=== PATIENT | male | born 1935 | race Caucasian/White ===

== ENCOUNTER 2016-12-01 07:33 | Emergency (ER) | payer OTHER ==
--- NOTE | 2016-12-01 09:12 | DIAGNOSTIC IMAGING REPORT ---
PROCEDURE: CT ABDOMEN/PELVIS W/O CONTRAST INDICATION: FLANK PAIN TECHNIQUE: Axial CT images were obtained through the abdomen and pelvis without IV contrast. Coronal and sagittal reformations were created. COMPARISON: None. FINDINGS: Respiratory motion at the lung bases. Mildly enlarged heart. Small fat containing hiatal hernia. Granulomatous changes throughout the spleen. 3 mm calcification in the left mid ureter. No significant hydronephrosis or hydroureter. Mild left judith ureteric inflammation. No other intrarenal calcifications. The unenhanced appearance of the liver, gallbladder, adrenal glands, kidneys, pancreas and spleen is normal. The abdominal aorta is normal in its course and caliber with moderate atherosclerosis. There are no suspicious calcifications, retroperitoneal adenopathy or masses. The stomach, upper bowel loops, and mesentery appears normal. Intact anterior abdominal wall. No free fluid, or inflammation. Surgical changes of prostatectomy. Left hip arthroplasty beam hardening artifact partially obscures the pelvis. The unenhanced appearance of the urinary bladder, pelvic vessels, and pelvic bowel loops is normal. Normal appendix. No suspicious calcifications, free fluid, or mass. Degenerative disc, endplate, and facet changes in the spine. IMPRESSION: 1. 3 mm mid left ureteral calculus without causing significant obstructive uropathy. 2. Splenic granulomas. 3. Status post prostatectomy and left hip arthroplasty. 4. Findings called to the emergency room. All CT scans at this facility use dose modulation, iterative reconstruction, and/or weight-based dosing when appropriate to reduce radiation dose to as low as reasonably achievable.
--- NOTE | 2016-12-01 09:39 | ED CLINICAL REPORT ---
Clinical Report - Physicians/Mid Levels [facility] [address] [place] [address] 12/01/2016 7:34 Patient: JIMI MEDINA Time Seen: 07:47. Arrived- By ambulance. Historian- patient, EMS personnel and family. HISTORY OF PRESENT ILLNESS Chief Complaint: ABDOMINAL PAIN and FLANK PAIN. This started about 5 days ago and is still present. It was gradual in onset and has been waxing/waning. It is described as "pain" and sharp and it is described as located in the left abdomen and the left flank and radiating to the left upper quadrant of the abdomen and left lower quadrant of the abdomen. At its maximum, severity described as severe. When seen in the E.D., severity described as mild. Modifying factors- worsened by movement. Relieved by rest. ("pain pill" helped - took just prior to arrival). The patient has had nausea. No vomiting or diarrhea. (Patient has had pain in his left flank with off and on diarrhea with a low grade fever. Went to the ER in [place] and was seen yesterday and diagnosed with kidney stones and given pain medication. Woke up this am in 8/10 pain and weak he states he rolled out of bed and couldn't get up. His son found him on the ground and called 911). Similar symptoms previously: Recent medical care: The patient was seen recently at another facility in the emergency department. Diagnosis: kidney stone. REVIEW OF SYSTEMS No constipation, black stools, hematemesis, pain with urination or bloody stools. No headache, sore throat, chest pain, difficulty breathing or cough. No chills. He has had difficulty with urination, and back pain. The patient has had urinary frequency. He has had a subjective fever (possible low grade). All systems otherwise negative, except as recorded above. PAST HISTORY PROBLEMS: Thrombocytopenia. Irregular heartbeat . Arthritis. Nephrolithiasis. Cancer. High blood pressure BPH Erectile dysfunction Inguinal hernia Prostate cancer. Malignant neoplasm of the skin Fracture of C7 Diverticulosis SURGERIES: Back Surgery. Knee Surgery. Prostatectomy. Shoulder Surgery - Rotator cuff repair Hip replacement ostatectomy. Medications: Fluticasone Propionate Nasal. Quinapril HCl Oral. Metoprolol Succinate ER Oral. Toradol. Zofran Oral. OxyCODONE HCl Oral. Accupril Oral. Allergies: No Known Drug Allergy. SOCIAL HISTORY Former smoker, end date 1971. No alcohol use or drug use. Is a local resident. ADDITIONAL NOTES The nursing notes have been reviewed. PHYSICAL EXAM Vital Signs: 12/01/2016 07:36 BP: 136/82. HR: 95. RR: 18. O2 saturation: 94%. Temp: 98.9 F. Appearance: Alert. Oriented X3. Patient in mild distress. Eyes: Eyes normal inspection. No scleral icterus or pale conjunctivae. ENT: Pharynx normal. No pharyngeal erythema or tonsillar exudate. The mucous membranes are not dry. Neck: Normal inspection. Neck supple. CVS: Heart sounds normal. Pulses normal. Respiratory: No respiratory distress. Breath sounds normal. Abdomen: Soft and nontender. No mass. Back: Normal inspection. Skin: Skin warm and dry. Normal skin color. Normal skin turgor. Extremities: Extremities exhibit normal ROM. No lower extremity edema. Neuro: Oriented X 3. No motor deficit. LABS, X-RAYS, AND EKG EKG: EKG time: (16:51 on 30NOV2016 [place] [facility] Normal sinus rhythm. Normal P waves. Normal JEANCARLOS. Normal QRS complex. Normal axis. Normal ST and T waves. The study has been interpreted contemporaneously by me. The EKG appears to be a good tracing. Laboratory Tests: UA-Culture if indicated: (FRANCHESKA: 12/01/2016 08:10) ( MsgRcvd 12/01/2016 08:31) Final results Test Result Flag Units (Reference) URINE COLOR YELLOW URINE APPEARANCE CLOUDY URINE GLUCOSE NEGATIVE (NEGATIVE) URINE BILIRUBIN NEGATIVE (NEGATIVE) URINE KETONE 1+ (NEGATIVE) URINE SPECIFIC GRAVITY 1.020 (1.010-1.030) URINE PH 5.5 (5.0-8.0) URINE PROTEIN 1+ (NEGATIVE) URINE UROBILINOGEN 0.2 EU/dL (0.2-1.0) URINE NITRITE POSITIVE (NEGATIVE) URINE BLOOD 3+ (NEGATIVE) URINE LEUK ESTERASE POSITIVE (NEGATIVE) URINE RBC 3-5 rbc/hpf (0-1) URINE WBC 15-25 wbc/hpf (0-1) URINE EPITHELIAL CELLS 0-1 EPI/hpf (0-5) URINE BACTERIA MANY (4+) (NONE SEEN) URINE COMMENT CULTURE INDICATED URINE CULTURES ARE SET-UP BASED ON THE FOLLOWING CRITERIA:POSITIVE NITRITEPOSITIVE LEUKOCYTE ESTERASEGREATER THAN 10 WHITE BLOOD CELLSMODERATE (2+) OR GREATER BACTERIA CBC w Diff: (FRANCHESKA: 12/01/2016 07:40) ( [facility] 12/01/2016 09:22) Final results Test Result Flag Units (Reference) WHITE BLOOD COUNT 8.2 K/uL (4.5-11.5) RED BLOOD COUNT 4.03 L M/uL (4.50-5.90) HEMOGLOBIN 12.1 L gm/dL (13.5-17.5) HEMATOCRIT 35.6 L % (41.0-53.0) MEAN CELL VOLUME 88 fL (80-100) MEAN CORPUSCULAR HGB 30 pg (26-34) MEAN CORPUSCULAR HGB CONC 34 g/dL (31-37) RED CELL DISTRIBUTION WIDTH 15.0 H % (11.6-14.8) PLATELET COUNT 107 L K/uL (150-400) POLY % 84 H % (50-75) BAND % 6 % (0-8) LYMPH 7 L % (25-40) MONO 3 % (3-14) EOSINOPHIL % 0 % (0-4) BASOPHIL % 0 % (0-2) METAMYELOCYTE % 0 % (0-1) MYELOCYTE 0 % (0-1) OTHER CELL TYPE 0 ANISOCYTOSIS 1+ PT with INR: (FRANCHESKA: 12/01/2016 07:40) ( [facility] 12/01/2016 08:19) Final results Test Result Flag Units (Reference) INR 1.0 (0.8-1.2) Low Intensity Therapy: INR 1.5-2.0 PT range 18.5-23.1Mod.Intensity Therapy: INR 2.0-3.0 PT range 23.1-31.5High Intensity Therapy: INR 2.5-3.5 PT range 27.4-35.5High Intensity Therapy 2: INR 3.0-4.0 PT range 31.5-39.3 BNP: (FRANCHESKA: 12/01/2016 07:40) ( MsgRcvd 12/01/2016 08:23) Final results Test Result Flag Units (Reference) B-TYPE NATRIURETIC PEPTIDE 354 H pg/ml (5-100) CHEM 13 PANEL: (FRANCHESKA: 12/01/2016 07:40) ( MsgRcvd 12/01/2016 08:36) Final results Test Result Flag Units (Reference) GLUCOSE 113 H mg/dL (70-110) BUN 33 H mg/dL (7-18) CREATININE 1.3 mg/dL (0.6-1.3) Estimated GFR 56.03 mL/min Estimated GFR- >60 mL/min Note: Persistent reduction over 3 months in eGFR<60 mL/min/1.73 m2 defines CKD. Patients with eGFR values>=60 mL/min/1.73 m2 may also have CKD if evidence ofpersistent proteinuria. Additional information may be foundat www.kidney.org. SODIUM 136 mmol/L (136-145) POTASSIUM 3.6 mmol/L (3.5-5.1) CHLORIDE 101 mmol/L (98-107) CARBON DIOXIDE 24 mmol/L (21-32) CALCIUM 8.5 mg/dL (8.5-10.1) TOTAL PROTEIN 6.7 g/dL (6.4-8.2) ALBUMIN 2.9 L g/dL (3.3-5.0) BILIRUBIN, TOTAL 0.9 mg/dL (0.0-1.0) ALKALINE PHOSPHATASE 100 U/L (46-116) AST (SGOT) 43 H U/L (15-37) ALT (SGPT) 50 U/L (12-78) CPK 755 H U/L (24-260) MAGNESIUM 1.7 L mg/dL (1.8-2.4) LIPASE 124 U/L (73-393) AMYLASE 45 U/L (25-115) CK-MB 11.0 H ng/mL (0.5-3.2) %CKMB 1.5 % (0.0-4.0) TROPONIN I <0.05 ng/mL (0.00-1.5) TROPONIN REFERENCE RANGE:<0.1 NEGATIVE0.1-1.5 INDETERMINANT>1.5 POSITIVE . Microbiology: Urine culture ordered. Pulse Oximetry: 12/01/2016 07:36 O2 saturation: 94%. (FIO2 - room air). Interpretation: hypoxemia. PROGRESS AND PROCEDURES Course of Care: Ceftriaxone 2g IV. Pt has urologist - Dr Lorenzana in [place]. I have offered to transfer him to [facility], but pt would really prefer to see his personal urologist. [place] [facility] [place] request that I speak directly to Dr Lorenzana although Dr. Lorenzana is not telecommunications repairer. Dr Lorenzana contacted in the office and will be able to see pt in the office today. Requests he go directly to see him if possible. Pt appears to have a UTI as well. I have given abx parenterally in the ED. Although he is currently afebrile, he may require hospitalization. Pt prefers to see his urologist today rather than be transferred to the hospital. He had good social support - don driving. Now pain free in the ED. 12/01/2016 10:03 BP: 126/68. HR: 72. RR: 18. O2 saturation: 97%. Temp: 99.3 F. Discussed case with health care provider (Katie). Patient/family counseled. Old ED records reviewed. [place] [facility] Disposition: Discharged. Condition: stable and improved. CLINICAL IMPRESSION Ureterolithiasis (single stone) in the right ureter with renal colic, hydronephrosis and urinary tract infection. Acute urinary tract infection with cystitis. INSTRUCTIONS Drink plenty of fluids. (Please go directly to Dr Lorenzana's office). Warnings: Further evaluation is necessary. SEDATIVE MEDICATION: You were given sedative medication during your visit. Do not drive or operate dangerous machinery. CONTROLLED SUBSTANCE WARNINGS. GENERAL WARNINGS: Return or contact your physician immediately if your condition worsens or changes unexpectedly, if not improving as expected, or if other problems arise. Your Current Medications: CONTINUE TAKING THE FOLLOWING MEDICATIONS: Accupril Oral. Fluticasone Propionate Nasal. Metoprolol Succinate ER Oral. OxyCODONE HCl Oral. Quinapril HCl Oral. Toradol*. Zofran Oral. Prescription Medications: Macrobid 100 mg: Take 1 capsule orally every 12 hours for 7 days. No refills. Substitution is permissible. Follow-up: Follow up with a urologist Dr Lorenzana today. (Electronically signed by Darin Jones DO 12/01/2016 11:30)
--- NOTE | 2016-12-01 09:39 | ED ORDER SUMMARY ---
..... Patient: JIMI MEDINA OrderSheet [facility] VisitID: [id number] [place] [address] 81y, M Registration Date/Time: 12/01/2016 ORDER SHEET Weight: 81.1 kg (stated) Allergies: No Known Drug Allergy GENERAL ORDERS: CT Abd/Pel wo Cont Urgent (07:57 12/01/2016 PHutchinson DO) (Ack 7:59 OHsruthinandez) (8:23 LWhalen R.N.) UA-Culture if indicated Urgent (07:57 12/01/2016 PHutchinson DO) (Ack 7:59 Donandez) (8:19 JSimbeck R.N.) Amylase Urgent (07:57 12/01/2016 PHutchinson DO) (Ack 7:59 Donandez) (8:23 LWhalen R.N.) Lipase Urgent (07:57 12/01/2016 PHutchinson DO) (Ack 7:59 Donandez) (8:23 LWhalen R.N.) PT with INR Urgent (07:57 12/01/2016 PHutchinson DO) (Ack 7:59 OHsruthinandez) (8:23 LWhalen R.N.) Cardiac Panel Stat (07:57 12/01/2016 PHutchinson DO) (Ack 7:59 OHernandez) (8:23 LWhalen R.N.) BNP Urgent (07:57 12/01/2016 PHutchinson DO) (Ack 7:59 OHsruthinandez) (8:23 LWhalen R.N.) NPO (07:57 12/01/2016 PHutchinson DO) (Ack 7:59 OHernandez) (8:23 LWhalen R.N.) Call (Place call to): ([facility] urology) (08:05 12/01/2016 PHutchinson DO) (8:23 LWhalen R.N.) MEDICATION ORDERS: IV FLUIDS: IV NS : initial bolus 500 mL (1000 mL/hr), then 250 mL/hr for X2 (NOW) (07:56 12/01/2016 PHutchinson DO) (8:23 LWhalen R.N.) Zofran IV 4 mg (NOW) (07:57 12/01/2016 [facility]) (8:23 LWquinn R.N.) Morphine IV 3 mg (HIGH ALERT MEDICATION, NOW) (08:29 12/01/2016 [facility]) (8:58 LWquinn R.N.) Ceftriaxone IV 2 gm/50mL (NOW) (08:45 12/01/2016 [facility]) (9:07 LWquinn R.N.) ORDER SHEET NOTES: [Electronically signed by Savage Peña R.N. (10:06 12/01/2016)] [Electronically signed by Darin Jones DO (11:30 12/01/2016)] [Electronically locked/signed by Savage Peña R.N. (10:12/01/2016)]
--- NOTE | 2016-12-01 09:39 | ED CLINICAL REPORT ---
Clinical Report - Physicians/Mid Levels [facility] [address] [place] [address] 12/01/2016 7:34 Patient: JIMI MEDINA Time Seen: 07:47. Arrived- By ambulance. Historian- patient, EMS personnel and family. HISTORY OF PRESENT ILLNESS Chief Complaint: ABDOMINAL PAIN and FLANK PAIN. This started about 5 days ago and is still present. It was gradual in onset and has been waxing/waning. It is described as "pain" and sharp and it is described as located in the left abdomen and the left flank and radiating to the left upper quadrant of the abdomen and left lower quadrant of the abdomen. At its maximum, severity described as severe. When seen in the E.D., severity described as mild. Modifying factors- worsened by movement. Relieved by rest. ("pain pill" helped - took just prior to arrival). The patient has had nausea. No vomiting or diarrhea. (Patient has had pain in his left flank with off and on diarrhea with a low grade fever. Went to the ER in [place] and was seen yesterday and diagnosed with kidney stones and given pain medication. Woke up this am in 8/10 pain and weak he states he rolled out of bed and couldn't get up. His son found him on the ground and called 911). Similar symptoms previously: Recent medical care: The patient was seen recently at another facility in the emergency department. Diagnosis: kidney stone. REVIEW OF SYSTEMS No constipation, black stools, hematemesis, pain with urination or bloody stools. No headache, sore throat, chest pain, difficulty breathing or cough. No chills. He has had difficulty with urination, and back pain. The patient has had urinary frequency. He has had a subjective fever (possible low grade). All systems otherwise negative, except as recorded above. PAST HISTORY PROBLEMS: Thrombocytopenia. Irregular heartbeat . Arthritis. Nephrolithiasis. Cancer. High blood pressure BPH Erectile dysfunction Inguinal hernia Prostate cancer. Malignant neoplasm of the skin Fracture of C7 Diverticulosis SURGERIES: Back Surgery. Knee Surgery. Prostatectomy. Shoulder Surgery - Rotator cuff repair Hip replacement ostatectomy. Medications: Fluticasone Propionate Nasal. Quinapril HCl Oral. Metoprolol Succinate ER Oral. Toradol. Zofran Oral. OxyCODONE HCl Oral. Accupril Oral. Allergies: No Known Drug Allergy. SOCIAL HISTORY Former smoker, end date 1971. No alcohol use or drug use. Is a local resident. ADDITIONAL NOTES The nursing notes have been reviewed. PHYSICAL EXAM Vital Signs: 12/01/2016 07:36 BP: 136/82. HR: 95. RR: 18. O2 saturation: 94%. Temp: 98.9 F. Appearance: Alert. Oriented X3. Patient in mild distress. Eyes: Eyes normal inspection. No scleral icterus or pale conjunctivae. ENT: Pharynx normal. No pharyngeal erythema or tonsillar exudate. The mucous membranes are not dry. Neck: Normal inspection. Neck supple. CVS: Heart sounds normal. Pulses normal. Respiratory: No respiratory distress. Breath sounds normal. Abdomen: Soft and nontender. No mass. Back: Normal inspection. Skin: Skin warm and dry. Normal skin color. Normal skin turgor. Extremities: Extremities exhibit normal ROM. No lower extremity edema. Neuro: Oriented X 3. No motor deficit. LABS, X-RAYS, AND EKG EKG: EKG time: (16:51 on 30NOV2016 - done at [facility] [place] Normal sinus rhythm. Normal P waves. Normal JEANCARLOS. Normal QRS complex. Normal axis. Normal ST and T waves. The study has been interpreted contemporaneously by me. The EKG appears to be a good tracing. Laboratory Tests: UA-Culture if indicated: (FRANCHESKA: 12/01/2016 08:10) ( MsgRcvd 12/01/2016 08:31) Final results Test Result Flag Units (Reference) URINE COLOR YELLOW URINE APPEARANCE CLOUDY URINE GLUCOSE NEGATIVE (NEGATIVE) URINE BILIRUBIN NEGATIVE (NEGATIVE) URINE KETONE 1+ (NEGATIVE) URINE SPECIFIC GRAVITY 1.020 (1.010-1.030) URINE PH 5.5 (5.0-8.0) URINE PROTEIN 1+ (NEGATIVE) URINE UROBILINOGEN 0.2 EU/dL (0.2-1.0) URINE NITRITE POSITIVE (NEGATIVE) URINE BLOOD 3+ (NEGATIVE) URINE LEUK ESTERASE POSITIVE (NEGATIVE) URINE RBC 3-5 rbc/hpf (0-1) URINE WBC 15-25 wbc/hpf (0-1) URINE EPITHELIAL CELLS 0-1 EPI/hpf (0-5) URINE BACTERIA MANY (4+) (NONE SEEN) URINE COMMENT CULTURE INDICATED URINE CULTURES ARE SET-UP BASED ON THE FOLLOWING CRITERIA:POSITIVE NITRITEPOSITIVE LEUKOCYTE ESTERASEGREATER THAN 10 WHITE BLOOD CELLSMODERATE (2+) OR GREATER BACTERIA CBC w Diff: (FRANCHESKA: 12/01/2016 07:40) ( [facility] 12/01/2016 09:22) Final results Test Result Flag Units (Reference) WHITE BLOOD COUNT 8.2 K/uL (4.5-11.5) RED BLOOD COUNT 4.03 L M/uL (4.50-5.90) HEMOGLOBIN 12.1 L gm/dL (13.5-17.5) HEMATOCRIT 35.6 L % (41.0-53.0) MEAN CELL VOLUME 88 fL (80-100) MEAN CORPUSCULAR HGB 30 pg (26-34) MEAN CORPUSCULAR HGB CONC 34 g/dL (31-37) RED CELL DISTRIBUTION WIDTH 15.0 H % (11.6-14.8) PLATELET COUNT 107 L K/uL (150-400) POLY % 84 H % (50-75) BAND % 6 % (0-8) LYMPH 7 L % (25-40) MONO 3 % (3-14) EOSINOPHIL % 0 % (0-4) BASOPHIL % 0 % (0-2) METAMYELOCYTE % 0 % (0-1) MYELOCYTE 0 % (0-1) OTHER CELL TYPE 0 ANISOCYTOSIS 1+ PT with INR: (FRANCHESKA: 12/01/2016 07:40) ( [facility] 12/01/2016 08:19) Final results Test Result Flag Units (Reference) INR 1.0 (0.8-1.2) Low Intensity Therapy: INR 1.5-2.0 PT range 18.5-23.1Mod.Intensity Therapy: INR 2.0-3.0 PT range 23.1-31.5High Intensity Therapy: INR 2.5-3.5 PT range 27.4-35.5High Intensity Therapy 2: INR 3.0-4.0 PT range 31.5-39.3 BNP: (FRANCHESKA: 12/01/2016 07:40) ( MsgRcvd 12/01/2016 08:23) Final results Test Result Flag Units (Reference) B-TYPE NATRIURETIC PEPTIDE 354 H pg/ml (5-100) CHEM 13 PANEL: (FRANCHESKA: 12/01/2016 07:40) ( MsgRcvd 12/01/2016 08:36) Final results Test Result Flag Units (Reference) GLUCOSE 113 H mg/dL (70-110) BUN 33 H mg/dL (7-18) CREATININE 1.3 mg/dL (0.6-1.3) Estimated GFR 56.03 mL/min Estimated GFR- >60 mL/min Note: Persistent reduction over 3 months in eGFR<60 mL/min/1.73 m2 defines CKD. Patients with eGFR values>=60 mL/min/1.73 m2 may also have CKD if evidence ofpersistent proteinuria. Additional information may be foundat www.kidney.org. SODIUM 136 mmol/L (136-145) POTASSIUM 3.6 mmol/L (3.5-5.1) CHLORIDE 101 mmol/L (98-107) CARBON DIOXIDE 24 mmol/L (21-32) CALCIUM 8.5 mg/dL (8.5-10.1) TOTAL PROTEIN 6.7 g/dL (6.4-8.2) ALBUMIN 2.9 L g/dL (3.3-5.0) BILIRUBIN, TOTAL 0.9 mg/dL (0.0-1.0) ALKALINE PHOSPHATASE 100 U/L (46-116) AST (SGOT) 43 H U/L (15-37) ALT (SGPT) 50 U/L (12-78) CPK 755 H U/L (24-260) MAGNESIUM 1.7 L mg/dL (1.8-2.4) LIPASE 124 U/L (73-393) AMYLASE 45 U/L (25-115) CK-MB 11.0 H ng/mL (0.5-3.2) %CKMB 1.5 % (0.0-4.0) TROPONIN I <0.05 ng/mL (0.00-1.5) TROPONIN REFERENCE RANGE:<0.1 NEGATIVE0.1-1.5 INDETERMINANT>1.5 POSITIVE . Microbiology: Urine culture ordered. Pulse Oximetry: 12/01/2016 07:36 O2 saturation: 94%. (FIO2 - room air). Interpretation: hypoxemia. PROGRESS AND PROCEDURES Course of Care: Ceftriaxone 2g IV. Pt has urologist - Dr Lorenzana in [place]. I have offered to transfer him to [facility], but pt would really prefer to see his personal urologist. Called [facility] and they request that I speak directly to Dr Lorenzana although Dr. Lorenzana is not property assessment monitor. Dr Lorenzana contacted in the office and will be able to see pt in the office today. Requests he go directly to see him if possible. Pt appears to have a UTI as well. I have given abx parenterally in the ED. Although he is currently afebrile, he may require hospitalization. Pt prefers to see his urologist today rather than be transferred to the hospital. He had good social support - don driving. Now pain free in the ED. 12/01/2016 10:03 BP: 126/68. HR: 72. RR: 18. O2 saturation: 97%. Temp: 99.3 F. Discussed case with health care provider (Katie). Patient/family counseled. Old ED records reviewed. (from [facility]). Disposition: Discharged. Condition: stable and improved. CLINICAL IMPRESSION Ureterolithiasis (single stone) in the right ureter with renal colic, hydronephrosis and urinary tract infection. Acute urinary tract infection with cystitis. INSTRUCTIONS Drink plenty of fluids. (Please go directly to Dr Lorenzana's office). Warnings: Further evaluation is necessary. SEDATIVE MEDICATION: You were given sedative medication during your visit. Do not drive or operate dangerous machinery. CONTROLLED SUBSTANCE WARNINGS. GENERAL WARNINGS: Return or contact your physician immediately if your condition worsens or changes unexpectedly, if not improving as expected, or if other problems arise. Your Current Medications: CONTINUE TAKING THE FOLLOWING MEDICATIONS: Accupril Oral. Fluticasone Propionate Nasal. Metoprolol Succinate ER Oral. OxyCODONE HCl Oral. Quinapril HCl Oral. Toradol*. Zofran Oral. Prescription Medications: Macrobid 100 mg: Take 1 capsule orally every 12 hours for 7 days. No refills. Substitution is permissible. Follow-up: Follow up with a urologist Dr Lorenzana today. (Electronically signed by Darin Jones DO 12/01/2016 11:30)
--- NOTE | 2016-12-01 09:39 | ED ORDER SUMMARY ---
..... Patient: JIMI MEDINA OrderSheet [facility] VisitID: [id number] [place] [address] 81y, M Registration Date/Time: 12/01/2016 ORDER SHEET Weight: 81.1 kg (stated) Allergies: No Known Drug Allergy GENERAL ORDERS: CT Abd/Pel wo Cont Urgent (07:57 12/01/2016 PHutchinson DO) (Ack 7:59 OHsruthinandez) (8:23 LWhalen R.N.) UA-Culture if indicated Urgent (07:57 12/01/2016 PHutchinson DO) (Ack 7:59 Donandez) (8:19 JSimbeck R.N.) Amylase Urgent (07:57 12/01/2016 PHutchinson DO) (Ack 7:59 Donandez) (8:23 LWhalen R.N.) Lipase Urgent (07:57 12/01/2016 PHutchinson DO) (Ack 7:59 Donandez) (8:23 LWhalen R.N.) PT with INR Urgent (07:57 12/01/2016 PHutchinson DO) (Ack 7:59 OHsruthinandez) (8:23 LWhalen R.N.) Cardiac Panel Stat (07:57 12/01/2016 PHutchinson DO) (Ack 7:59 OHernandez) (8:23 LWhalen R.N.) BNP Urgent (07:57 12/01/2016 PHutchinson DO) (Ack 7:59 OHsruthinandez) (8:23 LWhalen R.N.) NPO (07:57 12/01/2016 PHutchinson DO) (Ack 7:59 OHernandez) (8:23 LWhalen R.N.) Call (Place call to): ([facility] urology) (08:05 12/01/2016 PHutchinson DO) (8:23 LWhalen R.N.) MEDICATION ORDERS: IV FLUIDS: IV NS : initial bolus 500 mL (1000 mL/hr), then 250 mL/hr for X2 (NOW) (07:56 12/01/2016 PHutchinson DO) (8:23 LWhalen R.N.) Zofran IV 4 mg (NOW) (07:57 12/01/2016 [facility]) (8:23 LWquinn R.N.) Morphine IV 3 mg (HIGH ALERT MEDICATION, NOW) (08:29 12/01/2016 [facility]) (8:58 LWquinn R.N.) Ceftriaxone IV 2 gm/50mL (NOW) (08:45 12/01/2016 [facility]) (9:07 LWquinn R.N.) ORDER SHEET NOTES: [Electronically signed by Savage Peña R.N. (10:06 12/01/2016)] [Electronically signed by Darin Jones DO (11:30 12/01/2016)] [Electronically locked/signed by Savage Peña R.N. (10:12/01/2016)]
--- NOTE | 2016-12-01 09:39 | ED NURSING NOTES ---
Clinical Report - Nurses [facility] [address] [place] [place] [address] 12/01/2016 7:34 Patient: JIMI MEDINA TRIAGE Triage time 07:30 Dec 01 2016. Acuity: LEVEL 3. Chief Complaint: FEVER, DYSURIA and BACK PAIN (Weakness and pain). THOR COMA SCORE: Thor Coma Scale: 15- eyes open spontaneously (4); best verbal response- oriented x 4 (5); best motor response- obeys commands (6). --07:52 Savage Peña R.N. 07:36 12/01/16. BP: 136/82. HR: 95. RR: 18. O2 saturation: 94%. Temp: 98.9 F. Pain level now 6/10. --07:52 Savage Peña R.N. Weight: 81.1 kg stated. Height/Length: 72 inches Per Patient. BMI: 24.3. --07:52 Savage Peña R.N. Medications Accupril Oral. --07:43 Savage Peña R.N. OxyCODONE HCl Oral. --07:44 Savage Peña R.N. Zofran Oral. --07:44 Savage Peña R.N. Toradol. --07:45 Savage Peña R.N. Metoprolol Succinate ER Oral. --07:49 Savage Peña R.N. Quinapril HCl Oral. --07:49 Savage Peña R.N. Fluticasone Propionate Nasal. --07:49 Savage Peña R.N. Allergies No Known Drug Allergy. --07:50 Savage Peña R.N. History Arrived by EMS. Historian: patient. Onset. (5 days ago had pain). ( Patient has had pain in his left flank with off and on diarrhea with a low grade fever. Went to the ER in [place] and was seen yesterday and diagnosed with kidney stones and given pain medication. Woke up this am in 8/10 pain and weak he states he rolled out of bed and couldn't get up. His son found him on the ground and called 911.). No fever, weakness, difficulty breathing or skin rash. Denies muscle aches. PAST MEDICAL HX: Immunizations: up-to-date. SOCIAL HX: Former smoker, end date 1971. No alcohol use or drug use. SELF HARM ASSESSMENT: A self harm assessment was performed. The patient answered "no" to the question "Have you recently felt down, depressed, or hopeless?" and "Do you have thoughts of harming or killing yourself?". FALL RISK ASSESSMENT: Fall risk assessment completed. No fall risk identified. NUTRITIONAL RISK ASSESSMENT: The nutritional risk assessment revealed no deficiencies. FUNCTIONAL ASSESSMENT: Functional assessment: no impairments noted. LEARNING NEEDS ASSESSMENT: The learning needs assessment revealed no barriers. ABUSE ASSESSMENT: Abuse assessment: (yes) The patient was asked "Do you feel safe in your home?". SKIN INTEGRITY ASSESSMENT: Skin integrity risk assessment completed. No skin integrity risk identified. --07:52 Savage Peña R.N. PROBLEMS: Thrombocytopenia. Irregular heartbeat . Arthritis. Nephrolithiasis. Cancer . High blood pressure . --07:50 Savage Peña R.N. ADDITIONAL SURGERIES: Back Surgery. Knee Surgery. Prostatectomy. Shoulder Surgery. --07:50 Savage Peña R.N. Interventions ID band on patient. --07:52 Savage Peña R.N. PHYSICAL ASSESSMENT To room via stretcher. GENERAL / NEURO / PSYCH: Alert. Oriented X 4. Appears in pain and anxious. HEENT: Pupils equal, round and reactive to light. No facial asymmetry noted. Mucous membranes are pink. RESPIRATORY: Respirations not labored. Chest nontender. Breath sounds within normal limits. CVS: Normal sinus rhythm noted. Capillary refill less than 2 seconds. Pulses within normal limits. GI / : ( Last BM was 48 hours ago. States very little output and voiding isn't painful just weird feeling.). Abdomen soft and nontender. SKIN: Skin intact. Skin is warm and dry. Normal skin turgor. --07:53 Savage Peña R.N. NURSING PROGRESS NOTES The initial plan of care for this patient includes an assessment with efforts to address patient positioning, appropriate ambient lighting and comfortable environmental temperature. Monitoring of patient in place. Patient gowned. Head of bed elevated 60 degrees. Reassurance given. Call light placed in reach. Side rails up x 1. Bed placed in lowest position. Brakes of bed on. --07:54 Savage Peña R.N. 08:08 12/01/2016 Started bag #1 1000 mL IV Fluids IV NS (Saline); at 1000 mL/hr over 0.5 hour(s) via site #1 via IV pump. Allergies verified and confirmed 5 rights. IV patency established. IV site checked: no pain, redness, or swelling. IV flushed thoroughly pre- and post-medication administration. --08:23 Savage Peña R.N. 08:08 12/01/2016 Zofran (Ondansetron HCl) IVP 4 mg given over 2 minute(s) via site #1. Allergies verified and confirmed 5 rights. IV patency established. IV site checked: no pain, redness, or swelling. IV flushed thoroughly pre- and post-medication administration. --08:23 Savage Peña R.N. 08:22 12/01/2016 Site #1 started via IV in the left antecubital space with an 20g angiocath, with aseptic technique and good blood return; one attempt. Blood drawn: rainbow set. Labeled in the presence of the patient and sent to the lab. Saline lock flushed with 10 mL saline. --08:22 Savage Peña R.N. 08:43 12/01/2016 Morphine IVP 3 mg given over 2 minute(s) via site #1. Allergies verified, confirmed 5 rights and sedative warning given to the patient and patient's family. IV patency established. IV site checked: no pain, redness, or swelling. IV flushed thoroughly pre- and post-medication administration. --08:58 Savage Peña R.N. 09:02 12/01/2016 Started 2 gm of Ceftriaxone IVPB in bag #1 50 mL; at 150 mL/hr over 1 hour(s) via site #1 via IV pump. Allergies verified and confirmed 5 rights. IV patency established. IV site checked: no pain, redness, or swelling. IV flushed thoroughly pre- and post-medication administration. --09:07 Savage Peña R.N. DISPOSITION / DISCHARGE 09:40 12/01/2016 Ceftriaxone IVPB Discontinued: bag #1 infused. Total amount infused: 50 mL. IV patency established. IV site checked: no pain, redness, or swelling. IV flushed thoroughly. --10:05 Savage Peña R.N. 09:50 12/01/2016 IV Fluids IV NS Discontinued: bag #1 discontinued upon discharge. Total amount infused: 700 mL. IV patency established. IV site checked: no pain, redness, or swelling. IV flushed thoroughly. --10:05 Savage Peña R.N. 09:55 12/01/2016 Site #1 removed upon discharge. Catheter intact. Pressure dressing applied. --10:05 Savage Peña R.N. Departure time: 949Dec 01 2016. Condition at departure: improved. No learning barriers present. Discharge instructions provided and reviewed with the patient. Reviewed warnings. Reviewed medication(s). Treatments reviewed. Reviewed referrals. Patient and family verbalized understanding. Written instructions provided in [place]. The patient was discharged home and accompanied by family. He left the Emergency Department in a wheelchair and via private vehicle. Family member driving. --10:05 Savage Peña R.N. 10:03 12/01/16. BP: 126/68. HR: 72. RR: 18. O2 saturation: 97%. Temp: 99.3 F. Pain level now 0/10. --10:05 Savage Peña R.N. Locked/Released at 12/01/2016 10:06 by Savage Peña R.N.
--- NOTE | 2016-12-01 11:31 | ED MED RECONCILIATION SUMMARY ---
Patient: JIMI MEDINA Medication Reconciliation Report [facility] VisitID: [id number] [address] [place] [address] 81y, M Registration Date/Time: 12/01/2016 Weight: 81.1 kg Height/Length: 72 in. BMI: 24.3 ALLERGIES: No Known Drug Allergy The patient's Home Medications are listed below: CONTINUE TAKING THE FOLLOWING MEDICATIONS: Accupril Oral Fluticasone Propionate Nasal Metoprolol Succinate ER Oral OxyCODONE HCl Oral Quinapril HCl Oral Toradol Zofran Oral The source(s) of the original Home Medication information: Not obtained. The following Medications were given to the patient in the Emergency Department: IV NS IV Fluids bolus 0, then 1000 mL/hr, administered: 12/01/2016 8:08:00 AM Zofran [IVP] IVP 4 mg, administered: 12/01/2016 8:08:00 AM Morphine [IVP] IVP 3 mg, administered: 12/01/2016 8:43:00 AM Ceftriaxone [IVPB] IVPB bolus 0, then 2 gm 150 mL/hr, administered: 12/01/2016 9:02:00 AM The following Medications were prescribed to the patient: Macrobid 100 mg: Take 1 capsule orally every 12 hours for 7 days. No refills. Substitution is permissible. -- Darni Jones DO
--- NOTE | 2016-12-01 11:31 | ED DISCHARGE INSTRUCTIONS ---
Patient: JIMI MEDINA General Instructions [facility] VisitID: [id number] [place] [address] 81y, M Registration Date/Time: 12/01/2016 Ureterolithiasis (single stone) in the right ureter with renal colic, hydronephrosis and urinary tract infection. Acute urinary tract infection with cystitis. INSTRUCTIONS Drink plenty of fluids. (Please go directly to Dr Lorenzana's office). Warnings: Further evaluation is necessary. SEDATIVE MEDICATION: You were given sedative medication during your visit. Do not drive or operate dangerous machinery. CONTROLLED SUBSTANCE WARNINGS. GENERAL WARNINGS: Return or contact your physician immediately if your condition worsens or changes unexpectedly, if not improving as expected, or if other problems arise. Your Current Medications: CONTINUE TAKING THE FOLLOWING MEDICATIONS: Accupril Oral. Fluticasone Propionate Nasal. Metoprolol Succinate ER Oral. OxyCODONE HCl Oral. Quinapril HCl Oral. Toradol*. Zofran Oral. Prescription Medications: Macrobid 100 mg: Take 1 capsule orally every 12 hours for 7 days. No refills. Substitution is permissible. Follow-up: Follow up with a urologist Dr Lorenzana today. ADDITIONAL INFORMATION Kidney Stone (W/ Colic) The sharp cramping pain and nausea/vomiting that you have is due to a small stone which has formed in the kidney and is now passing down a narrow tube (ureter) on its way to your bladder. Once it reaches your bladder, the pain will stop. The stone may pass in your urine stream in one piece. [The size may be 1/16" to 1/4" (1-6mm)]. Or, the stone may also break up into clark fragments which you may not even notice. Once you have had a kidney stone, you are at risk for developing another one in the future. Home Care: Drink plenty of fluids (at least 8 to 10 glasses of water a day). Most stones will pass on their own, but may take from a few hours to a few days. Sometimes the stone is too large to pass by itself and special methods will have to be used to remove the stone. Each time you urinate, do so in a jar. Pour the urine from the jar through the strainer and into the toilet. Continue doing this until 24 hours after your pain stops. By then, if there was a kidney stone, it should pass from your bladder. Some stones dissolve into sand-like particles and pass right through the strainer. In that case, you wont ever see a stone. Save any stone that you find in the strainer and bring it to your doctor for analysis. It may be possible to prevent certain types of stones from forming. Therefore, it is important to know what kind of stone you have. Try to stay as active as possible since this will help the stone pass. Do not stay in bed unless your pain prevents you from getting up. You may notice a red, pink or brown color to your urine. This is normal while passing a kidney stone. Follow Up with your doctor or return to this facility if the pain lasts more than 48 hours. Get Prompt Medical Attention if any of the following occur: Pain that is not controlled by the medicine given Repeated vomiting or unable to keep down fluids Weakness, dizziness or fainting Fever of 100.4F (38C) or higher, or as directed by your healthcare provider Passage of solid red or brown urine (can't see through it) or urine with lots of blood clots Unable to pass urine for 8 hours and increasing bladder pressure Bladder Infection,Male (Adult) A bladder infection ("cystitis" or "UTI") usually causes a constant urge to urinate, and a burning when passing urine. Urine may be cloudy, smelly or dark. There may be also be pain in the lower abdomen. Cystitis in males is not common. It may be caused by a partial blockage in the urinary system that keeps the bladder from emptying completely. This is most often related to an enlarged prostate gland. Home Care: Drink lots of fluids (at least 6-8 glasses a day). This will flush the bacteria out of your bladder. Avoid sexual intercourse until your symptoms are gone. Avoid caffeine, alcohol, and spicy foods. They could irritate the bladder. A bladder infection is treated with antibiotics. You may also be given Pyridium (generic - phenazopyridine) to reduce burning with urination. This will cause urine to become a bright orange color, which can stain clothing. Follow Up with your doctor or this facility if ALL symptoms have not cleared within five days. It is important to keep your follow up appointment to discuss with your doctor the need for further tests of the urinary tract. Get Prompt Medical Attention if any of the following occur: Fever of 100.4F (38C) or higher, or as directed by your healthcare provider No improvement by the third day of treatment Increasing back or abdominal pain Repeated vomiting; unable to keep medicine down Weakness, dizziness or fainting Nitrofurantoin, Nitrofurantoin, Macrocrystalline Oral capsule What is this medicine? NITROFURANTOIN (lucian HUNTER toyn) is an antibiotic. It is used to treat urinary tract infections. How should I use this medicine? Take this medicine by mouth with a glass of water. Follow the directions on the prescription label. Take this medicine with food or milk. Take your doses at regular intervals. Do not take your medicine more often than directed. Do not stop taking except on your doctor's advice. Talk to your blow mold machine operator regarding the use of this medicine in children. While this drug may be prescribed for selected conditions, precautions do apply. What side effects may I notice from receiving this medicine? Side effects that you should report to your doctor or health child care lead teacher as soon as possible: allergic reactions like skin rash or hives, swelling of the face, lips, or tongue chest pain cough difficulty breathing dizziness, drowsiness fever or infection joint aches or pains pale or blue-tinted skin redness, blistering, peeling or loosening of the skin, including inside the mouth tingling, burning, pain, or numbness in hands or feet unusual bleeding or bruising unusually weak or tired yellowing of eyes or skin Side effects that usually do not require medical attention (report to your doctor or health child care lead teacher if they continue or are bothersome): dark urine diarrhea headache loss of appetite nausea or vomiting temporary hair loss What may interact with this medicine? antacids containing magnesium trisilicate probenecid quinolone antibiotics like ciprofloxacin, lomefloxacin, norfloxacin and ofloxacin sulfinpyrazone What if I miss a dose? If you miss a dose, take it as soon as you can. If it is almost time for your next dose, take only that dose. Do not take double or extra doses. Where should I keep my medicine? Keep out of the reach of children. Store at room temperature between 15 and 30 degrees C (59 and 86 degrees F). Protect from light. Throw away any unused medicine after the expiration date. What should I tell my health care provider before I take this medicine? They need to know if you have any of these conditions: anemia diabetes [id number] dehydrogenase deficiency kidney disease liver disease lung disease other chronic illness an unusual or allergic reaction to nitrofurantoin, other antibiotics, other medicines, foods, dyes or preservatives or trying to get breast-feeding What should I watch for while using this medicine? Tell your doctor or health child care lead teacher if your symptoms do not improve or if you get new symptoms. Drink several glasses of water a day. If you are taking this medicine for a long time, visit your doctor for regular checks on your progress. If you are diabetic, you may get a false positive result for sugar in your urine with certain brands of urine tests. Check with your doctor. You have been given the following additional information: Kidney Stone W/ Colic Bladder Infection, Male (Adult) Nitrofurantoin, Nitrofurantoin, Macrocrystalline Oral capsule (Electronically signed by Darin Jones DO 12/01/2016 11:30)
--- NOTE | 2016-12-01 11:31 | ED MAR SUMMARY ---
..... Medication Administration Record [facility] [address] [place] [address] Patient: JIMI MEDINA Visit ID: [id number] 81y, M Weight: 81.1 kg Height/Length: 72 in BMI: 24.3 ALLERGIES: No Known Drug Allergy Start 08:08 12/01/2016 Savage Peña R.N., Stop 09:50 12/01/2016 Savage Peña R.N. Medication Administered: IV NS (SALINE), Dose: IV Fluids over 0.5 hour(s), Rate: 1000 mL/hr, Dispensed: 1000 mL bag, Site: #1. Medication Ordered: IV NS : initial bolus 500 mL (1000 mL/hr), then 250 mL/hr for X2 (NOW). Given 08:08 12/01/2016 Savage Peña R.N. Medication Administered: ZOFRAN [IVP] (ONDANSETRON HCL), Dose: 4 mg IVP over 2 minute(s), Site: #1. Medication Ordered: Zofran IV 4 mg (NOW). Given 08:43 12/01/2016 Savage Peña R.N. Medication Administered: MORPHINE [IVP], Dose: 3 mg IVP over 2 minute(s), Site: #1 left AC. Medication Ordered: Morphine IV 3 mg (HIGH ALERT MEDICATION, NOW). Start 09:02 12/01/2016 Savage Peña R.N., Stop 09:40 12/01/2016 Savage Peña R.N. Medication Administered: CEFTRIAXONE [IVPB], Dose: 2 gm IVPB over 1 hour(s), Rate: 150 mL/hr, Dispensed: 50 mL bag, Site: #1 left AC. Medication Ordered: Ceftriaxone IV 2 gm/50mL (NOW).
--- NOTE | 2016-12-01 11:31 | ED MED RECONCILIATION SUMMARY ---
Patient: JIMI MEDINA Medication Reconciliation Report [facility] VisitID: [id number] [address] [place] [address] 81y, M Registration Date/Time: 12/01/2016 Weight: 81.1 kg Height/Length: 72 in. BMI: 24.3 ALLERGIES: No Known Drug Allergy The patient's Home Medications are listed below: CONTINUE TAKING THE FOLLOWING MEDICATIONS: Accupril Oral Fluticasone Propionate Nasal Metoprolol Succinate ER Oral OxyCODONE HCl Oral Quinapril HCl Oral Toradol Zofran Oral The source(s) of the original Home Medication information: Not obtained. The following Medications were given to the patient in the Emergency Department: IV NS IV Fluids bolus 0, then 1000 mL/hr, administered: 12/01/2016 8:08:00 AM Zofran [IVP] IVP 4 mg, administered: 12/01/2016 8:08:00 AM Morphine [IVP] IVP 3 mg, administered: 12/01/2016 8:43:00 AM Ceftriaxone [IVPB] IVPB bolus 0, then 2 gm 150 mL/hr, administered: 12/01/2016 9:02:00 AM The following Medications were prescribed to the patient: Macrobid 100 mg: Take 1 capsule orally every 12 hours for 7 days. No refills. Substitution is permissible. -- Darin Jones DO
--- NOTE | 2016-12-01 11:31 | ED MAR SUMMARY ---
..... Medication Administration Record [facility] [address] [place] [address] Patient: JIMI MEDINA Visit ID: [id number] 81y, M Weight: 81.1 kg Height/Length: 72 in BMI: 24.3 ALLERGIES: No Known Drug Allergy Start 08:08 12/01/2016 Savage Peña R.N., Stop 09:50 12/01/2016 Savage Peña R.N. Medication Administered: IV NS (SALINE), Dose: IV Fluids over 0.5 hour(s), Rate: 1000 mL/hr, Dispensed: 1000 mL bag, Site: #1. Medication Ordered: IV NS : initial bolus 500 mL (1000 mL/hr), then 250 mL/hr for X2 (NOW). Given 08:08 12/01/2016 Savage Peña R.N. Medication Administered: ZOFRAN [IVP] (ONDANSETRON HCL), Dose: 4 mg IVP over 2 minute(s), Site: #1. Medication Ordered: Zofran IV 4 mg (NOW). Given 08:43 12/01/2016 Savage Peña R.N. Medication Administered: MORPHINE [IVP], Dose: 3 mg IVP over 2 minute(s), Site: #1 left AC. Medication Ordered: Morphine IV 3 mg (HIGH ALERT MEDICATION, NOW). Start 09:02 12/01/2016 Savage Peña R.N., Stop 09:40 12/01/2016 Savage Peña R.N. Medication Administered: CEFTRIAXONE [IVPB], Dose: 2 gm IVPB over 1 hour(s), Rate: 150 mL/hr, Dispensed: 50 mL bag, Site: #1 left AC. Medication Ordered: Ceftriaxone IV 2 gm/50mL (NOW).
== END 2016-12-01 09:50 | disposition home or self-care (01) ==
LOC: ED SRH 07:33
DX: N13.6 Pyonephrosis (principal); N30.00 Acute cystitis without hematuria; I10 Essential (primary) hypertension; Z79.899 Other long term (current) drug therapy; Z79.891 Long term (current) use of opiate analgesic
CPT/HCPCS: 90004; 90100; 90148; 90469; 90616; 90617; 91320; 91643; 92235; 92530; 92610; 92720; 94060; 95059